=== PATIENT | female | born 1945 | race Caucasian/White ===

== ENCOUNTER 2017-11-08 13:12 | Emergency (ER) | payer OTHER, BC ==
[~2017-11-08] VITALS: Ht 157.5 cm; Wt 66.0 kg
[2017-11-08 14:14] LABS: HEMOGLOBIN 13.5 G/DL (11.9-15.5); MCH 29.2 PG (29.0-34.0); MCHC 32.9 G/DL (30.0-36.0); MCV 88.7 FL (83-99); PLATELET COUNT 298 K/uL (156-360); RBC DIS.WIDTH-CV 12.1 % (11.8-14.6); RBC DIS.WIDTH-SD 39.2 % (39-53); RED BLOOD COUNT 4.62 M/uL (3.80-5.20); WHITE BLOOD COUNT 8.8 K/uL (4.1-10.2)
[2017-11-08 14:24] LABS: CHLORIDE 105 mEq/L (99-109); POTASSIUM 4.3 mEq/L (3.7-5.4); SODIUM 144 mEq/L (136-147)
[2017-11-08 14:25] LABS: GLUCOSE 101 mg/dL (70-99)
[2017-11-08 14:29] LABS: CREATININE 0.8 mg/dL (0.6-1.3); GFR ESTIMATE (CALCULATED) > 59 mL/min/
[2017-11-08 14:30] LABS: UREA NITROGEN (BUN) 12 mg/dL (9-23)
[2017-11-08 15:02] LABS: PTT 25.5 SEC (25-37)
[2017-11-08 15:17] LABS: ALBUMIN 4.3 g/dL (3.2-4.8)
[2017-11-08 15:20] LABS: TOTAL PROTEIN 7.5 g/dL (6.4-8.3)
[2017-11-08 15:22] LABS: TOTAL BILIRUBIN 0.4 mg/dL (0.0-1.0)
[2017-11-08 15:23] LABS: ALKALINE PHOSPHATASE 90 IU/L (3-129)
[2017-11-08 15:25] LABS: AST (GOT) 29 IU/L (2-34); DIRECT BILIRUBIN 0.1 mg/dL (0.0-0.3)
[2017-11-08 15:26] LABS: ALT (GPT) 23 IU/L (3-49); LIPASE 41 U/L (1.0-51.0)
[2017-11-08] MEDS ORDERED: TESSALON PERLE100 MG PO (16:12)
[2017-11-08 17:02] VITALS: BP 152/77
== END 2017-11-08 17:06 | disposition home or self-care (01) ==
LOC: EME 13:12
PROVIDERS: Nurse Practitioner Acute Care
DX: J06.9 Acute upper respiratory infection, unspecified (principal); R04.2 Hemoptysis; I34.1 Nonrheumatic mitral (valve) prolapse; Z88.6 Allergy status to analgesic agent; Z88.5 Allergy status to narcotic agent
CPT/HCPCS: 71046; 71275; 80048; 80076; 83690; 85027; 85610; 85730; 99281; 99285; J7030